=== PATIENT | female | born 1965 | race Caucasian/White ===

== ENCOUNTER 2017-03-02 13:19 | Inpatient (IN) | payer OTHER ==
[~2017-03-02] VITALS: Ht 165.1 cm; Wt 185.5 kg
[2017-03-02 15:17] LABS: HEMOGLOBIN 12.3 gm/dl (12.3-15.3); RED BLOOD COUNT 4.79 M/UL (4.00-5.10); WHITE BLOOD COUNT 8.9 K/UL (4.5-11.0)
[2017-03-02 15:30] LABS: BUN/CREATININE RATIO 12 (0-10)
[2017-03-02] MEDS ORDERED: LASIX20 MG PO (23:48)
[2017-03-03 04:27] LABS: HEMOGLOBIN 12.1 gm/dl (12.3-15.3); RED BLOOD COUNT 4.74 M/UL (4.00-5.10); WHITE BLOOD COUNT 9.1 K/UL (4.5-11.0)
[2017-03-03 04:39] LABS: BUN/CREATININE RATIO 12 (0-10)
[2017-03-04 04:59] LABS: RED BLOOD COUNT 4.71 M/UL (4.00-5.10)
[2017-03-04 05:05] LABS: WHITE BLOOD COUNT 11.4 K/UL (4.5-11.0)
[2017-03-04 05:17] LABS: BUN/CREATININE RATIO 26 (0-10)
[2017-03-04] MEDS ORDERED: LISINOPRIL10 MG PO (11:40)
[2017-03-04] MEDS ORDERED: TOPROL XL 25 MG25 MG PO (11:40)
[2017-05-08] MEDS ORDERED: VENTOLIN/PROVE0.5 ML INH (23:12)
[2017-05-12] MEDS ORDERED: BACTRIM DS TAB1 EACH PO (17:48)
[2017-05-12] MEDS ORDERED: LACTINEX TABLET1 EA PO (17:49)
[2017-05-12] MEDS ORDERED: KEFLEX500 MG PO (17:49)
== END 2017-03-04 17:50 | disposition home or self-care (01) | DRG 291 ==
LOC: ER1 13:19 → M/S 21:20 → ZEROF 21:20 → M/S 23:21
PROVIDERS: Hospitalist; Physician Assistant; ADMIT Internal Medicine
DX: I50.33 Acute on chronic diastolic (congestive) heart failure (principal); J96.21 Acute and chronic respiratory failure with hypoxia; J96.22 Acute and chronic respiratory failure with hypercapnia; E66.2 Morbid (severe) obesity with alveolar hypoventilation; L97.819 Non-pressure chronic ulcer of other part of right lower leg with unspecified severity; Z68.44 Body mass index [BMI] 60.0-69.9, adult; J44.9 Chronic obstructive pulmonary disease, unspecified; I10 Essential (primary) hypertension; I87.2 Venous insufficiency (chronic) (peripheral); I25.10 Atherosclerotic heart disease of native coronary artery without angina pectoris; E88.09 Other disorders of plasma-protein metabolism, not elsewhere classified; F17.210 Nicotine dependence, cigarettes, uncomplicated; Z91.19 Patient's noncompliance with other medical treatment and regimen; Z99.3 Dependence on wheelchair; Z98.61 Coronary angioplasty status; Z83.3 Family history of diabetes mellitus; Z82.49 Family history of ischemic heart disease and other diseases of the circulatory system; Z88.1 Allergy status to other antibiotic agents; Z88.7 Allergy status to serum and vaccine; Z88.8 Allergy status to other drugs, medicaments and biological substances
CPT/HCPCS: ECHO; 36415; 36600; 71010; 80048; 80053; 82550; 82553; 82803; 83036; 83874; 83880; 84484; 85025; 85027; 85379; 93005; 93306; 93970; 94640; 94664; 96374; 96375; 97110; 97116; 99285; J1650; J1940; J2920; J2930; J7050; Q9963

== ENCOUNTER 2021-10-08 19:04 | Inpatient (IN) | payer OTHER ==
[~2021-10-08] VITALS: Ht 167.6 cm; Wt 201.9 kg
[~2021-10-08 19:04] MED LIST: ANORO ELLIPTA1 EACH INH; ARNUITY ELLIP200 MCG INH; ASPIRIN CHEWABL81 MG PO; ASPIRIN EC81 MG PO; BACTRIM DS TAB1 EACH PO; BUMEX 1MG TABLET1 MG PO; CARVEDILOL3.125 MG PO; DULERA 100 MCG8.8 GM INH; IMDUR ER TAB 3030 MG PO; IODOSORB TOP; IRON325 M1 PO; K-DUR TAB 20 M20 MEQ PO; KEFLEX500 MG PO; LACTINEX TABLET1 EA PO; LASIX20 MG PO; LISINOPRIL10 MG PO; LORTAB 5-325 M1 EACH PO; METOPROLOL SUCC25 MG PO; NAPROXEN500 MG PO; NYSTOP60 GM TOP; OMNICEF 300 MG300 MG PO; PREDNISONE50 MG PO; PRINIVIL5 MG PO; REMERON30 M1 PO; SENOKOT-S TABL1 EACH PO; SPIRIVA HANDIH18 MCG INH; TESSALON PERLE100 MG PO; THERAGRAN M TAB1 EA PO; TOPROL XL 25 MG25 MG PO; TYLENOL 325MG325 MG PO; VENTOLIN HFA 66.7 GM INH; VENTOLIN/PROVE0.5 ML INH; VITAMIN D250000 UNIT PO; ZYVOX600 MG PO
[2021-10-08 23:04] LABS: HEMOGLOBIN 10.8 gm/dl (12.3-15.3); RED BLOOD COUNT 4.59 M/UL (4.00-5.10); WHITE BLOOD COUNT 12.9 K/UL (4.5-11.0)
[2021-10-08 23:18] LABS: BUN/CREATININE RATIO 35 (0-10)
[2021-10-09] MEDS ORDERED: SYMBICORT 16010.2 GM INH (10:13)
[2021-10-09] MEDS ORDERED: ATORVASTATIN CA40 MG PO (10:13)
[2021-10-09] MEDS ORDERED: BUMETANIDE1 MG PO (10:15)
[2021-10-09] MEDS ORDERED: FERROUS SULFAT325 MG PO (10:15)
[2021-10-09] MEDS ORDERED: VITAMIN D31250 MCG PO (10:16)
[2021-10-09] MEDS ORDERED: PROAIR HFA8.5 GM INH (10:16)
[2021-10-09] MEDS ORDERED: FAMOTIDINE20 MG PO (10:16)
[2021-10-09] MEDS ORDERED: BUSPIRONE HCL5 MG PO (10:16)
[2021-10-09] MEDS ORDERED: PROTONIX 40 MG40 M1 PO (10:17)
[2021-10-09] MEDS ORDERED: RANOLAZINE ER500 MG PO (10:17)
[2021-10-09] MEDS ORDERED: IPRAT-ALBUT 0.5-3 ML INH (10:17)
[2021-10-09] MEDS ORDERED: ELIQUIS5 MG PO (10:18)
[2021-10-09] MEDS ORDERED: MONTELUKAST SOD10 MG PO (10:18)
[2021-10-09] MEDS ORDERED: METOPROLOL SUCC50 MG PO (10:18)
[2021-10-10 04:16] LABS: HEMOGLOBIN 8.9 gm/dl (12.3-15.3)
[2021-10-10 04:18] LABS: RED BLOOD COUNT 3.89 M/UL (4.00-5.10)
[2021-10-10 04:35] LABS: BUN/CREATININE RATIO 21 (0-10)
[2021-10-10] MEDS ORDERED: NYSTATIN60 GM TOP (11:52)
--- NOTE | 2021-10-10 19:12 | NUR ---
10/10/211909 REPORT CALLED [facility] TO BE TRANSFERRED TO 0856
--- NOTE | 2021-10-10 19:36 | NUR ---
PT TRANSFERRED TO ROOM 5119 ON [facility] VIA RESOURCE RN. PT STABLE AT THE TIME OF TRANSFER.
[2021-10-11] MEDS ORDERED: AUGMENTIN 875-1 EACH PO (08:55)
[2021-10-12 06:06] LABS: BUN/CREATININE RATIO 19 (0-10)
[2021-10-14 06:07] LABS: BUN/CREATININE RATIO 25 (0-10)
[2021-10-15 07:34] LABS: BUN/CREATININE RATIO 24 (0-10)
[2021-10-15] MEDS ORDERED: BUMETANIDE1 MG PO (09:01)
== END 2021-10-15 12:00 | disposition home or self-care (01) | DRG 291 ==
LOC: ER1 19:04 → CDU 10-09 04:53 → 3 EAST 10-09 04:53 → CDU 10-09 04:53 → 3 EAST 10-09 20:28 → M/S 10-10 19:55
PROVIDERS: Internal Medicine; Internal Medicine Nephrology; Physician Assistant; ADMIT Internal Medicine
DX: I11.0 Hypertensive heart disease with heart failure (principal); I50.33 Acute on chronic diastolic (congestive) heart failure; J96.11 Chronic respiratory failure with hypoxia; L03.115 Cellulitis of right lower limb; E66.2 Morbid (severe) obesity with alveolar hypoventilation; Z68.45 Body mass index [BMI] 70 or greater, adult; E87.2 Acidosis; N17.9 Acute kidney failure, unspecified; I87.2 Venous insufficiency (chronic) (peripheral); F17.210 Nicotine dependence, cigarettes, uncomplicated; J44.9 Chronic obstructive pulmonary disease, unspecified; E78.5 Hyperlipidemia, unspecified; Z99.81 Dependence on supplemental oxygen; Z95.1 Presence of aortocoronary bypass graft; Z90.49 Acquired absence of other specified parts of digestive tract; Z98.890 Other specified postprocedural states; Z88.8 Allergy status to other drugs, medicaments and biological substances; Z88.5 Allergy status to narcotic agent; Z82.49 Family history of ischemic heart disease and other diseases of the circulatory system; Z82.3 Family history of stroke; Z79.82 Long term (current) use of aspirin; Z79.899 Other long term (current) drug therapy; Z99.3 Dependence on wheelchair
CPT/HCPCS: 36415; 71045; 80048; 80053; 80202; 82550; 82553; 82570; 82803; 83735; 83880; 84156; 84484; 85025; 85610; 85652; 85730; 86140; 93971; 94640; 94664; 94760; 96365; 96366; 96375; 96376; 99285; A6212; J0696; J1205; J1940; J3370; J7030; J7070; P9047; U0002

== ENCOUNTER 2022-01-02 12:31 | Inpatient (IN) | payer OTHER ==
[~2022-01-02] VITALS: Ht 162.6 cm; Wt 195.9 kg
[~2022-01-02 12:31] MED LIST changes: +ATORVASTATIN CA40 MG PO; +AUGMENTIN 875-1 EACH PO; +BUMETANIDE1 MG PO; +BUSPIRONE HCL7.5 MG PO; +DIAMOX 250 MG250 MG PO; +DULOXETINE HCL30 MG PO; +ELIQUIS5 MG PO; +FAMOTIDINE20 MG PO; +FERROUS SULFAT325 MG PO; +IPRAT-ALBUT 0.5-3 ML INH; +K-TAB ER10 MEQ PO; +K-TAB ER20 MEQ PO; +MEDROL DOSEPAK 24 MG PO; +METOPROLOL SUCC50 MG PO; +MONTELUKAST SOD10 MG PO; +NYSTATIN60 GM TOP; +PROAIR HFA8.5 GM INH; +PROTONIX 40 MG40 M1 PO; +RANOLAZINE ER500 MG PO; +SYMBICORT 16010.2 GM INH; +VIBRAMYCIN 100100 MG PO; +VITAMIN D31250 MCG PO
[2022-01-02 13:20] LABS: HEMOGLOBIN 9.9 gm/dl (12.3-15.3); RED BLOOD COUNT 4.32 M/UL (4.00-5.10); WHITE BLOOD COUNT 11.4 K/UL (4.5-11.0)
[2022-01-02 13:44] LABS: BUN/CREATININE RATIO 24 (0-10)
[2022-01-02] MEDS ORDERED: NYSTATIN60 GM TOP (16:53)
[2022-01-02] MEDS ORDERED: IPRAT-ALBUT 0.5-3 ML INH (16:55)
[2022-01-02] MEDS ORDERED: BENADRYL 25MG C25 MG PO (16:58)
[2022-01-03 06:50] LABS: BUN/CREATININE RATIO 22 (0-10)
--- NOTE | 2022-01-04 05:52 | NUR ---
Patient daily weight 443.0 weighed in bed with no blanket and one (1) sheet. Patient daily weight on 01/03/22 was 438.9 weighed in bed with no blanket and one (1) sheet. Patient daily weight a gain of 4.1 pounds. Patients 24 hour daily intake 1710 mls and output 3480 mls.
[2022-01-05 09:13] LABS: CREATININE, URINE 94.3 mg/dL (Not Estab.)
[2022-01-06 02:29] LABS: HEMOGLOBIN 10.3 gm/dl (12.3-15.3); RED BLOOD COUNT 4.54 M/UL (4.00-5.10); WHITE BLOOD COUNT 10.2 K/UL (4.5-11.0)
[2022-01-06 02:43] LABS: BUN/CREATININE RATIO 25 (0-10)
--- NOTE | 2022-01-06 18:55 | NUR ---
Pedal pulses were located as ordered via doppler. Both feet were examined and the pulses appeared present and strong. The patient was not experiencing any discomfort or pain. The left extremity was raised on a rolled blanket. On followup assessment during shift change report the patients foot was noted to be of better coloration and looked less dark. Still no discomfort was noted.
[2022-01-07 03:55] LABS: BUN/CREATININE RATIO 28 (0-10)
--- NOTE | 2022-01-07 06:28 | NUR ---
POSITONED PATIENT FOOT ON PILLOW, SHE REFUSED IT AFTER 5 MINUTES. WILL NOT ALLOW US TO REPOSITION HER BED.
[2022-01-08 04:34] LABS: BUN/CREATININE RATIO 30 (0-10)
[2022-01-10 03:03] LABS: HEMOGLOBIN 10.4 gm/dl (12.3-15.3); RED BLOOD COUNT 4.49 M/UL (4.00-5.10)
[2022-01-10 04:24] LABS: BUN/CREATININE RATIO 32 (0-10)
[2022-01-11 03:17] LABS: BUN/CREATININE RATIO 25 (0-10)
[2022-01-13 03:01] LABS: HEMOGLOBIN 11.2 gm/dl (12.3-15.3); RED BLOOD COUNT 4.81 M/UL (4.00-5.10); WHITE BLOOD COUNT 8.4 K/UL (4.5-11.0)
[2022-01-13 03:35] LABS: BUN/CREATININE RATIO 35 (0-10)
[2022-01-13] MEDS ORDERED: FERROUS SULFAT325 M2 PO (15:00)
[2022-01-13] MEDS ORDERED: POLYETHYLENE GL17 GM PO (15:00)
[2022-01-13] MEDS ORDERED: SENOKOT-S TABL1 EACH PO (15:00)
[2022-01-13] MEDS ORDERED: DIAMOX 250 MG250 MG PO (15:00)
[2022-01-13] MEDS ORDERED: CELECOXIB200 MG PO (15:00)
--- NOTE | 2022-01-13 17:56 | NUR ---
REPORT CALLED TO [facility].
--- NOTE | 2022-01-13 18:06 | NUR ---
RN QUESTIONED PATIENT ABOUT CURRENT LIVING SITUATION AT HOME. PATIENT STATED HER SON TOOK CARE OF HER BUT THEIR HOUSE WAS "A LITTLE MESSY," BUT DENIED HOME HEALTH AND ASSISTANCE WHEN RN OFFERED TO REQUEST THIS FROM MD. DR. IRVIN ALSO QUESTIONED PATIENT EARLIER TODAY IF SHE HAD HELP AT HOME AND RN WITNESSED PATIENT TELL DR. IRVIN HER SON WAS WILLING AND ABLE TO CARE FOR HER. TACTICAL [employer] CONTROL PARTY MANAGER [place] MADE AWARE. NO S/SX OF PAIN OR DISTRESS NOTED TO PATIENT. BED LOCKED AND LOW. CALL LIGHT WITHIN REACH. PATIENT PENDING DISCHARGE WHILE WAITING FOR ARRIVAL OF AMBULANCE SERVICE TO TRANSPORT HER HOME. PATIENT IS ALERT AND ORIENTED.
--- NOTE | 2022-01-13 18:27 | NUR ---
PATIENT INSTRUCTED TO CALL HOSPITAL IF PROBLEMS OCCUR AT HOME OR IF SHE CHANGES HER MIND ABOUT ASSISTANCE ONCE DISCHARGED.
== END 2022-01-13 18:48 | disposition home or self-care (01) | DRG 291 ==
LOC: ER1 12:31 → CDU 16:06 → M/S 16:06
PROVIDERS: Emergency Medicine; Internal Medicine Infectious Disease; ADMIT Internal Medicine
DX: I13.0 Hypertensive heart and chronic kidney disease with heart failure and stage 1 through stage 4 chronic kidney disease, or unspecified chronic kidney disease (principal); I50.33 Acute on chronic diastolic (congestive) heart failure; Z20.822 Contact with and (suspected) exposure to COVID-19; N18.6 End stage renal disease; Z68.45 Body mass index [BMI] 70 or greater, adult; E66.2 Morbid (severe) obesity with alveolar hypoventilation; J96.12 Chronic respiratory failure with hypercapnia; J96.11 Chronic respiratory failure with hypoxia; N30.00 Acute cystitis without hematuria; I48.20 Chronic atrial fibrillation, unspecified; E87.3 Alkalosis; B88.8 Other specified infestations; M19.90 Unspecified osteoarthritis, unspecified site; L30.3 Infective dermatitis; I25.10 Atherosclerotic heart disease of native coronary artery without angina pectoris; E78.5 Hyperlipidemia, unspecified; R53.81 Other malaise; N18.9 Chronic kidney disease, unspecified; D50.9 Iron deficiency anemia, unspecified; I87.8 Other specified disorders of veins; J44.9 Chronic obstructive pulmonary disease, unspecified; D63.1 Anemia in chronic kidney disease; F17.210 Nicotine dependence, cigarettes, uncomplicated; B96.20 Unspecified Escherichia coli [E. coli] as the cause of diseases classified elsewhere; I48.0 Paroxysmal atrial fibrillation; Z79.01 Long term (current) use of anticoagulants; Z90.49 Acquired absence of other specified parts of digestive tract; Z98.891 History of uterine scar from previous surgery; Z98.890 Other specified postprocedural states; Z82.3 Family history of stroke; Z83.3 Family history of diabetes mellitus; Z82.49 Family history of ischemic heart disease and other diseases of the circulatory system; Z88.1 Allergy status to other antibiotic agents; Z51.5 Encounter for palliative care
CPT/HCPCS: 36415; 36600; 71045; 80048; 80053; 81001; 82043; 82570; 82728; 82803; 83540; 83550; 83735; 83880; 84156; 84484; 85025; 85027; 86140; 87077; 87086; 87186; 93925; 94640; 94664; 94760; 96374; 97110; 97110-GP-CQ; 97161; 97166; 97530; 97530-GP-CQ; 99285; J0696; J1100; J1205; J1756; J1940; J7030; Q9967; U0002

== ENCOUNTER 2022-02-25 13:57 | Emergency (ER) | payer OTHER ==
[~2022-02-25 13:57] MED LIST changes: +BENADRYL 25MG C25 MG PO; +CELECOXIB200 MG PO; +FERROUS SULFAT325 M2 PO; +POLYETHYLENE GL17 GM PO
[2022-02-25 14:21] LABS: HEMOGLOBIN 11.8 gm/dl (12.3-15.3); RED BLOOD COUNT 4.67 M/UL (4.00-5.10); WHITE BLOOD COUNT 12.4 K/UL (4.5-11.0)
[2022-02-25 14:43] LABS: BUN/CREATININE RATIO 15 (0-10)
[2022-02-25] MEDS ORDERED: CEPHALEXIN500 M1 PO (20:28)
[2022-02-27 08:27] LABS: CANDIDA ALBICANS Not Detected (Negative); CANDIDA KRUSEI Not Detected (Negative); CANDIDA TROPICALIS Not Detected (Negative); ESCHERICHIA COLI Not Detected (Negative); HAEMOPHILUS INFLUENZAE Not Detected (Negative); KLEBSIELLA OXYTOCA Not Detected (Negative); KLEBSIELLA PNEUMONIAE Not Detected (Negative); KPC-CARBAPENEM-RESISTANCE GENE Not Detected (Negative); PROTEUS Not Detected (Negative); PSEUDOMONAS AERUGINOSA Not Detected (Negative); SERRATIA MARCESANS Not Detected (Negative); STAPHYLOCOCCUS DETECTED (Negative); STAPHYLOCOCCUS AUREUS Not Detected (Negative); STREP AGALACTIAE (GROUP B) Not Detected (Negative); STREP PYOGENES (GROUP A) Not Detected (Negative); STREPTOCOCCUS Not Detected (Negative); vanA/B (VANCOMYCIN RESIST GENE Not Detected (Negative)
== END 2022-02-25 22:27 | disposition home or self-care (01) ==
LOC: ER1 13:57
PROVIDERS: Nurse Practitioner
DX: R06.02 Shortness of breath (principal); I87.8 Other specified disorders of veins; N39.0 Urinary tract infection, site not specified; R31.9 Hematuria, unspecified; Z20.822 Contact with and (suspected) exposure to COVID-19; E66.01 Morbid (severe) obesity due to excess calories; I48.91 Unspecified atrial fibrillation; I11.0 Hypertensive heart disease with heart failure; I50.9 Heart failure, unspecified; J44.9 Chronic obstructive pulmonary disease, unspecified; Z88.1 Allergy status to other antibiotic agents; Z88.8 Allergy status to other drugs, medicaments and biological substances; F17.210 Nicotine dependence, cigarettes, uncomplicated
CPT/HCPCS: 0240U; 36600; 71045; 80053; 81001; 82550; 82553; 82803; 83605; 83880; 84484; 85025; 86140; 87040; 87077; 87086; 87150; 87186; 93005; 96374; 96375; 99285; J0696; J1940

== ENCOUNTER 2022-03-21 22:04 | Emergency (ER) | payer OTHER ==
[~2022-03-21 22:04] MED LIST changes: +CEPHALEXIN500 M1 PO; +RANEXA500 MG PO; -RANOLAZINE ER500 MG PO
[2022-03-22 00:25] LABS: RED BLOOD COUNT 4.18 M/UL (4.00-5.10); WHITE BLOOD COUNT 14.2 K/UL (4.5-11.0)
[2022-03-22 00:58] LABS: BUN/CREATININE RATIO 21 (0-10)
== END 2022-03-22 03:15 | disposition home or self-care (01) ==
LOC: ER1 22:04
PROVIDERS: Emergency Medicine
DX: R60.0 Localized edema (principal); E66.01 Morbid (severe) obesity due to excess calories; F17.200 Nicotine dependence, unspecified, uncomplicated; I48.91 Unspecified atrial fibrillation; I50.9 Heart failure, unspecified; J44.9 Chronic obstructive pulmonary disease, unspecified
CPT/HCPCS: 71045; 80053; 81001; 82550; 82553; 83880; 84484; 85025; 93005; 96374; 99284

== ENCOUNTER 2022-03-23 16:43 | Inpatient (IN) | payer OTHER ==
[~2022-03-23] VITALS: Ht 167.6 cm; Wt 187.5 kg
[2022-03-23 18:53] LABS: HEMOGLOBIN 10.7 gm/dl (12.3-15.3); RED BLOOD COUNT 4.12 M/UL (4.00-5.10); WHITE BLOOD COUNT 13.5 K/UL (4.5-11.0)
[2022-03-23 19:15] LABS: BUN/CREATININE RATIO 31 (0-10)
[2022-03-24 04:35] LABS: HEMOGLOBIN 10.6 gm/dl (12.3-15.3); RED BLOOD COUNT 4.05 M/UL (4.00-5.10); WHITE BLOOD COUNT 11.9 K/UL (4.5-11.0)
[2022-03-24 05:12] LABS: BUN/CREATININE RATIO 28 (0-10)
[2022-03-24] MEDS ORDERED: FUROSEMIDE20 MG PO (10:32)
[2022-03-24] MEDS ORDERED: POTASSIUM CHLO20 ME2 PO (10:32)
[2022-03-24] MEDS ORDERED: CEPHALEXIN500 MG PO (10:33)
[2022-03-24] MEDS ORDERED: NYSTATIN60 GM TOP (10:33)
[2022-03-24] MEDS ORDERED: ELIQUIS5 MG PO (10:33)
[2022-03-24] MEDS ORDERED: DULOXETINE HCL30 MG PO (10:33)
[2022-03-24] MEDS ORDERED: DIAMOX 250 MG250 MG PO (10:34)
[2022-03-24] MEDS ORDERED: CELEBREX200 MG PO (10:34)
[2022-03-24] MEDS ORDERED: IRON325 M1 PO (10:34)
[2022-03-24] MEDS ORDERED: MIRALAX17 GM PO (10:35)
[2022-03-24] MEDS ORDERED: PROZAC10 MG PO (10:35)
[2022-03-25 10:00] LABS: HEMOGLOBIN 10.5 gm/dl (12.3-15.3); RED BLOOD COUNT 3.99 M/UL (4.00-5.10)
[2022-03-25 10:25] LABS: BUN/CREATININE RATIO 25 (0-10)
[2022-03-26 06:13] LABS: HEMOGLOBIN 10.8 gm/dl (12.3-15.3); RED BLOOD COUNT 4.15 M/UL (4.00-5.10); WHITE BLOOD COUNT 8.1 K/UL (4.5-11.0)
[2022-03-26 06:28] LABS: BUN/CREATININE RATIO 30 (0-10)
[2022-03-27 06:43] LABS: HEMOGLOBIN 10.9 gm/dl (12.3-15.3); RED BLOOD COUNT 4.16 M/UL (4.00-5.10); WHITE BLOOD COUNT 9.1 K/UL (4.5-11.0)
[2022-03-27 07:36] LABS: BUN/CREATININE RATIO 27 (0-10)
[2022-03-28 06:35] LABS: HEMOGLOBIN 11.2 gm/dl (12.3-15.3); RED BLOOD COUNT 4.3 M/UL (4.00-5.10); WHITE BLOOD COUNT 8.4 K/UL (4.5-11.0)
[2022-03-28 06:56] LABS: BUN/CREATININE RATIO 30 (0-10)
[2022-03-28] MEDS ORDERED: POTASSIUM CHLO20 ME1 PO (15:22)
[2022-03-28] MEDS ORDERED: FUROSEMIDE40 MG PO (15:22)
[2022-03-28] MEDS ORDERED: MUPIROCIN22 GM TOP (15:22)
[2022-03-28] MEDS ORDERED: OMNICEF 300 MG300 MG PO (15:22)
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
[2022-03-29 06:44] LABS: HEMOGLOBIN 11.8 gm/dl (12.3-15.3); RED BLOOD COUNT 4.45 M/UL (4.00-5.10); WHITE BLOOD COUNT 8.2 K/UL (4.5-11.0)
[2022-03-29 07:08] LABS: BUN/CREATININE RATIO 28 (0-10)
[2022-03-30 06:01] LABS: HEMOGLOBIN 12.1 gm/dl (12.3-15.3); RED BLOOD COUNT 4.53 M/UL (4.00-5.10); WHITE BLOOD COUNT 8.5 K/UL (4.5-11.0)
[2022-03-30 06:26] LABS: BUN/CREATININE RATIO 29 (0-10)
[2022-03-31 05:53] LABS: HEMOGLOBIN 12.2 gm/dl (12.3-15.3); RED BLOOD COUNT 4.62 M/UL (4.00-5.10); WHITE BLOOD COUNT 9.3 K/UL (4.5-11.0)
[2022-03-31 06:12] LABS: BUN/CREATININE RATIO 29 (0-10)
[2022-04-01 06:09] LABS: RED BLOOD COUNT 4.52 M/UL (4.00-5.10); WHITE BLOOD COUNT 8.4 K/UL (4.5-11.0)
[2022-04-01 06:29] LABS: BUN/CREATININE RATIO 31 (0-10)
[2022-04-02 05:59] LABS: HEMOGLOBIN 12.3 gm/dl (12.3-15.3); RED BLOOD COUNT 4.65 M/UL (4.00-5.10); WHITE BLOOD COUNT 9.7 K/UL (4.5-11.0)
[2022-04-02 06:17] LABS: BUN/CREATININE RATIO 36 (0-10)
[2022-04-03 07:16] LABS: BUN/CREATININE RATIO 34 (0-10)
[2022-04-04 06:28] LABS: BUN/CREATININE RATIO 37 (0-10)
[2022-04-06 03:08] LABS: BUN/CREATININE RATIO 34 (0-10)
--- NOTE | 2022-04-07 02:03 | NUR ---
APPROX 0010 PT TELEY MONITORING WAS NOT PICKING UP, AFTER 4 NEW TELEY BOXES, 4 NEW LEAD WIRES, 3 NEW STICKERS, AND CHANGING OF PULSE OX CORD. APPROX 0200 EQUIPMENT IS BACK TO WORKING PROPERLY. PT IN NO SIGNS OF DISTRESS, PT IS AWAKE AND PLAYING ON HER PHONE.
[2022-04-08 03:20] LABS: BUN/CREATININE RATIO 32 (0-10)
[2022-04-11 06:53] LABS: HEMOGLOBIN 12.1 gm/dl (12.3-15.3); RED BLOOD COUNT 4.64 M/UL (4.00-5.10); WHITE BLOOD COUNT 7.3 K/UL (4.5-11.0)
[2022-04-11 07:09] LABS: BUN/CREATININE RATIO 28 (0-10)
== END 2022-04-11 19:19 | disposition home or self-care (01) | DRG 280 ==
LOC: ER1 16:43 → MED SURG 4 20:29 → CDU 20:29 → PROG CARE 20:29 → MED SURG 4 03-25 17:38
PROVIDERS: Family Medicine; Internal Medicine; ADMIT Internal Medicine
DX: I13.0 Hypertensive heart and chronic kidney disease with heart failure and stage 1 through stage 4 chronic kidney disease, or unspecified chronic kidney disease (principal); I21.A1 Myocardial infarction type 2; I50.33 Acute on chronic diastolic (congestive) heart failure; Z20.822 Contact with and (suspected) exposure to COVID-19; J96.21 Acute and chronic respiratory failure with hypoxia; J96.22 Acute and chronic respiratory failure with hypercapnia; E66.2 Morbid (severe) obesity with alveolar hypoventilation; Z68.45 Body mass index [BMI] 70 or greater, adult; L03.116 Cellulitis of left lower limb; N39.0 Urinary tract infection, site not specified; L03.818 Cellulitis of other sites; I87.8 Other specified disorders of veins; M10.9 Gout, unspecified; E78.5 Hyperlipidemia, unspecified; F17.210 Nicotine dependence, cigarettes, uncomplicated; I27.81 Cor pulmonale (chronic); I48.0 Paroxysmal atrial fibrillation; F10.10 Alcohol abuse, uncomplicated; J44.9 Chronic obstructive pulmonary disease, unspecified; L89.892 Pressure ulcer of other site, stage 2; L89.322 Pressure ulcer of left buttock, stage 2; L89.312 Pressure ulcer of right buttock, stage 2; N18.9 Chronic kidney disease, unspecified; D63.1 Anemia in chronic kidney disease; I25.10 Atherosclerotic heart disease of native coronary artery without angina pectoris; K59.00 Constipation, unspecified; M79.3 Panniculitis, unspecified; Z79.01 Long term (current) use of anticoagulants; Z99.81 Dependence on supplemental oxygen; Z90.49 Acquired absence of other specified parts of digestive tract; Z98.891 History of uterine scar from previous surgery; Z98.890 Other specified postprocedural states; Z88.1 Allergy status to other antibiotic agents; Z88.8 Allergy status to other drugs, medicaments and biological substances; Z80.9 Family history of malignant neoplasm, unspecified; Z82.5 Family history of asthma and other chronic lower respiratory diseases
CPT/HCPCS: 36415; 71045; 73030; 74018; 76882; 80048; 80053; 80061; 82550; 82553; 83036; 83735; 83880; 84439; 84443; 84484; 85025; 85027; 85379; 93005; 94640; 94760; 96374; 97110; 97110-GP-CQ; 97161; 97165; 97530; 97530-GP-CQ; 99285; A6212; J0696; J1940